=== PATIENT | male | born 1985 | race Caucasian/White ===

== ENCOUNTER 2021-03-08 15:08 | Emergency (ER) | payer OTHER ==
[~2021-03-08 15:08] MED LIST: HYDROCODONE-APA1 TAB PO; MOTRIN600 MG PO; NAPROSYN375 MG PO; NORCO 5-325 TA1 EACH PO; VICODIN 10/3251 EACH PO
[2021-03-08 16:24] LABS: CORONAVIRUS 2019 SARS-COV-2 NEGATIVE (NEGATIVE); INFLUENZA A NAA NEGATIVE (NEGATIVE)
[2021-03-08] MEDS ORDERED: ONDANSETRON ODT4 MG PO (16:44)
[2021-03-08] MEDS ORDERED: IMODIUM2 MG PO (16:44)
== END 2021-03-08 16:50 | disposition home or self-care (01) ==
LOC: FER 15:08
PROVIDERS: Internal Medicine
DX: A08.4 Viral intestinal infection, unspecified (principal); I10 Essential (primary) hypertension; F17.210 Nicotine dependence, cigarettes, uncomplicated; Z20.822 Contact with and (suspected) exposure to COVID-19
CPT/HCPCS: 71045; U0002

== ENCOUNTER 2021-06-01 17:58 | Emergency (ER) | payer OTHER ==
[~2021-06-01 17:58] MED LIST changes: +IMODIUM2 MG PO; +ONDANSETRON ODT4 MG PO
[2021-06-01 19:27] LABS: INFLUENZA A NAA NEGATIVE (NEGATIVE)
[2021-06-01 19:32] LABS: CORONAVIRUS 2019 SARS-COV-2 POSITIVE (NEGATIVE)
== END 2021-06-01 19:00 | disposition home or self-care (01) ==
LOC: FER 17:58
PROVIDERS: Nurse Practitioner Family
DX: U07.1 COVID-19 (principal)
CPT/HCPCS: 99283; U0002